=== PATIENT | male | born 1995 | race Caucasian/White ===

== ENCOUNTER 2018-07-17 19:10 | Emergency (ER) | payer BC ==
[2018-07-17 19:17] VITALS: BP 126/79
--- NOTE | 2018-07-17 19:46 | EDPHY ---
H & P Stated Complaint: Dysphagia and throat swelling since 1029 Time Seen by Provider: 07/17/18 19:45 HPI/ROS: HPI: This is a 22-year-old male who presents with Chief Complaint: Dysphagia and throat swelling since 1029 Location: Throat Quality: Swelling and pain Duration: 8 hr prior to arrival Signs and Symptoms: no fever, no nausea, no vomiting, no diarrhea, no urinary symptoms, no chest pain, no shortness of breath, no wheezing, no cough, no sore throat, no neck stiffness, no joint pain, no swollen glands, no ear pain, no rash Timing: Sudden onset, constant Severity: [id number] Context: Patient presents with sudden onset sore throat and difficulty swallowing that started around 10 30 this morning that is 8 hr prior to arrival. He was seen at [facility] and had a rapid strep performed and was negative. Patient reports that he has increased pain with swallowing. He feels like there is a fullness in the back of his throat. Denies neck stiffness, fever, cough, swollen glands. He is not taking anyover- the-counter pain medication. Modifying Factors: None Comment: ROS: A comprehensive 10 system review of systems is otherwise negative aside from elements mentioned in the history of present illness. MEDICAL/SURGICAL/SOCIAL HISTORY: Medical history: Generally healthy. Does not take any regular medications. Surgical history: Denies Social history: Student at [employer]. Never smoked. Denies drug use. Family history noncontributory. CONSTITUTIONAL: Extremely well-appearing, nontoxic-appearing young adult white male, awake and alert, no obvious distress HEENT: Atraumatic and normocephalic, PERRL, EOMI. Nares patent; no rhinorrhea; no nasal mucosal edema. Tympanic membranes clear. Oropharynx clear, no tonsillar hypertrophy, no tonsillar erythema, no exudate and moist pink mucosa. Airway patent. + spotty anterior cervical lymphadenopathy. No meningismus. Cardiovascular: Normal S1/S2, regular rate, regular rhythm, without murmur rub or gallop. PULMONARY/CHEST: Symmetrical and nontender. Clear to auscultation bilaterally. Good air movement. No accessory muscle usage. ABDOMEN: Soft, nondistended, nontender, no rebound, no guarding, no peritoneal signs, no masses or organomegaly. No CVAT. EXTREMITIES: 2/2 pulses, strength 5/5, no deformities, no clubbing, no cyanosis or edema. NEUROLOGICAL: no focal neuro deficits. GCS 15. Speech clear. SKIN: Warm and dry, no erythema. no rash. Good capillary refill. Source: Patient Exam Limitations: No limitations - Personal History Current Tetanus Diphtheria and Acellular Pertussis (TDAP): Yes - Medical/Surgical History Hx Asthma: No Hx Chronic Respiratory Disease: No Hx Diabetes: No Hx Cardiac Disease: No Hx Renal Disease: No Hx Cirrhosis: No Hx Alcoholism: No Hx HIV/AIDS: No Hx Splenectomy or Spleen Trauma: No Other PMH: denies - Social History Smoking Status: Never smoked Constitutional: Initial Vital Signs Temperature (C) 36.7 C 07/17/18 19:13 Heart Rate 98 07/17/18 19:13 Respiratory Rate 16 07/17/18 19:13 Blood Pressure 126/79 H 07/17/18 19:13 O2 Sat (%) 99 07/17/18 19:13 O2 Delivery Mode Room Air Allergies/Adverse Reactions: No Known Allergies Allergy (Unverified 07/17/18 19:13) Home Medications: Medication Instructions Recorded Amoxicillin Trihydrate [Amoxil] 500 mg PO TID 10 Days cap 07/17/18 Codeine Phosphate/Guaifenesin 10 ml PO Q6 PRN #240 ml 07/17/18 [Guaifen-Codeine 200-20 mg/10Ml] Medical Decision Making ED Course/Re-evaluation: Vital signs reviewed and stable upon arrival. No systemic signs. No signs of postpharyngeal abscess/tonsillar abscess/dehydration/meningitis Based on modified [facility] criteria; will treat with prophylactic antibiotics. Amoxicillin 500 mg given in the ER and prescription for same time 10 days. Patient also given Decadron 10 mg, Percocet, 15 mL of viscous lidocaine. Reassessed patient able to swallow better with adequate pain control. Discharge father asking for cough medicine for patient. Prescription given per request. This patient was seen under the supervision of my secondary supervising physician. I evaluated care for this patient independently. Discussed this patient with Dr. Bryant. Differential Diagnosis: Differential diagnosis includes but is not limited to viral pharyngitis, strep pharyngitis, infectious mononucleosis, upper respiratory infection, tonsillar abscess. - Data Points Laboratory Results: 07/17/18 07/17/18 Unknown 19:21 Group A Strep Screen NEGATIVE (NEGATIVE) Group A Strep DNA Pending Departure - Departure Disposition: Home, Routine, Self-Care Clinical Impression: Strep pharyngitis Condition: Good Instructions: Strep Throat (ED) Additional Instructions: Consume a minimum of 8-10 glasses of water or electrolyte fluid replacement drinks that include Gatorade, Powerade, Pedialyte. Eat a bland diet for the next 48 hours and then slowly advance as tolerated. Take antibiotics as directed. Do not skip a dose. Complete full 10 day course. Take Tylenol 650 mg every 4 hours and/or Ibuprofen 600 mg every 8 hours with food as needed for pain/fever/headache. Return to the ER immediately if you cannot swallow, have drooling, fevers, neck stiffness, cannot open your jaw, or any other symptoms that concern you. Referrals: [facility],. [Clinic] - As per Instructions Prescriptions: Amoxicillin Trihydrate [Amoxil] 500 mg PO TID 10 Days cap Codeine Phosphate/Guaifenesin [Guaifen-Codeine 200-20 mg/10Ml] 10 ml PO Q6 PRN # 240 ml PRN Reason: Sore Throat
[2018-07-17] MEDS ORDERED: DEXAMETHASONE 4 MG TAB PO ONE (19:49)
[2018-07-17] MEDS ORDERED: OXYCODONE/APAP 5/325 TAB PO ONE (19:49)
[2018-07-17] MEDS ORDERED: LIDOCAINE 2% VISCOUS 15 ML UDCUP PO ONE (19:50)
== END 2018-07-17 20:07 | disposition home or self-care (01) ==
DX: J02.0 Streptococcal pharyngitis (principal)